=== PATIENT | male | born 1980 | race African-American/Black ===

== ENCOUNTER 2020-07-28 16:33 | Emergency (ER) | payer MEDICAID, SELFPAY ==
[2020-07-28 16:34] VITALS: BP 131/76; PULSE 86; RESP 16; TEMP 36.2; O2SAT 100; BMI 23.0
--- NOTE | 2020-07-28 16:47 | ED.DCSUM_ITS ---
- ER Visit Summary Date of Service: 07/28/20 Chief Complaint: Dental pain History of Present Illness: The patient is a 40 M with dental pain from a tooth fracture at the right mandible. Physical Examination: There is a fractured tooth to the right mandibular premolar. No abscess. No tongue elevation. No trismus. Airway intact. Skin is normal. Neck shows good range of motion. No meningismus. No lymphadenopathy. Test Results: None indicated Emergency Department Course and Treatment: Patient was treated with pain medicine and antibiotics. Referred to dental for follow-up. His prescription database report showed no controlled prescriptions. No history of addiction or abuse. Treatment Plan: Naproxen, [place], [place] K Disposition: Discharge Impression: Dental pain This note was generated with [employer] dictation software. It may contain incorrect words, spelling, and punctuation that were not noted in review of the chart prior to signing ED Disposition - Plan for ED Patient: Referrals: Eliazar Alberts Chi, MD [Primary Care Provider] -
--- NOTE | 2020-07-28 16:48 | ED.DEP ---
ED Disposition - Plan for ED Patient: Instructions: ED Tooth Pain Prescriptions: Naproxen [Naprosyn] 500 mg PO BID PRN #20 tab Prescription Printed Hydrocodone Bitart/Apap 5-325 [[place] 5MG-325MG] 1 tab PO Q6H PRN PRN 3 Days #10 tab PRN Reason: Pain Prescription Printed Penicillin V Potassium 500 mg PO 4X/DAY #40 tab Prescription Printed
[2020-07-28] MEDS: Penicillin Vk 250 MG Tablet 500 MG PO (17:13)
[2020-07-28] MEDS: HYDROcodone Bitartrate/Apap 5/325 Tablet PO (17:14)
== END 2020-07-28 17:32 | disposition home or self-care (01) ==
LOC: ED 16:59
PROVIDERS: Emergency Provider Emergency Medicine; PCP Family Medicine Geriatric Medicine
DX: K08.89 Other specified disorders of teeth and supporting structures (principal); F17.200 Nicotine dependence, unspecified, uncomplicated
CPT/HCPCS: 99283

== ENCOUNTER 2021-05-25 19:31 | Emergency (ER) | payer MEDICAID, SELFPAY ==
[2021-05-25 19:32] VITALS: BP 143/82; PULSE 96; RESP 18; TEMP 37.2; BMI 23.0
--- NOTE | 2021-05-25 19:40 | EDS_ITS ---
HPI History of Present Illness Chief Complaint: Lower Extremity Injury Informant: patient Narrative Narrative: Patient states he slipped getting off of his boat and trailer. He somehow twisted his right ankle. He states it has not swollen but it hurts mostly in the anterior medial area. No other injury. Pressing and moving makes it worse. A wrap that his put on made it better. [facility] Medical History (Updated 05/25/21 @ 20:[address] Adonis Joseph MD) Asthma Rheumatoid arthritis Home Medications naproxen 500 mg PO BID #20 tab 05/25/21 [Rx Last Taken Unknown] Allergy/AdvReac Type Severity Reaction Status Date / Time No Known Allergies Allergy Verified 07/28/20 16:34 Surgical History History of esophageal surgery Social History Smoking Status: Current every day smoker tobacco type: cigarettes ROS ROS ED Constitutional Constitutional ED: Denies fever(s) Gastrointestinal Gastrointestinal: Denies nausea or vomiting Musculoskeletal Musculoskeletal: Reports other Details: See history of present illness. ; Denies back pain or neck pain Integumentary Denies Abrasions or rash Neurologic Neurologic: Denies paresthesias or weakness Hematologic/Lymphatic Hematologic/Lymphatic: Denies easy bleeding or easy bruising EXAM Physical Exam Const Vital Signs: 05/25/21 19:32 05/25/21 20:36 Temperature 98.9 F Temperature Source Temporal Pulse Rate 96 Respiratory Rate 18 16 Blood Pressure 143/82 H Blood Pressure Mean 102 Positive well nourished and well developed General Appearance ED: well developed Resp normal respiratory effort Extremity normal to inspection Extremity Narrative: No visible deformity or swelling. There is some mild tenderness to the anterior lateral aspect of the medial malleolus. A little bit into the midfoot in that area. The ankle is stable to inversion eversion and drawer exam. Achilles is intact by palpation and Currie test. No tenderness with compression of calcaneus. Neuro oriented x3 Sensorium / Orientation: alert Psych mental status grossly normal Skin Lesions: no lesions Rashes: no rashes MDM MDM MDM Narrative Medical decision making narrative: X-rays looked at by me and read by radiology showed no sign of acute fracture. The patient had a stable ankle on exam. He will be given Naprosyn for pain. He requested crutches for support. I will also put him in an Aircast. He should be very gentle and avoid repeat injury for at least 2 months. If it still hurting in 2 weeks he should have it reevaluated and possibly clark-rayed. Radiography Diagnostic Testing: Radiology Impression Ankle X-Ray 05/25/21 19:46 IMPRESSION: Normal x-ray examination of the ankle. Electronically Signed: Anderson Alex MD at 20:05 EDT Tel , Service support , Discharge Plan Triage Chief Complaint: Lower Extremity Injury ED Provider: Adonis Joseph Dx/Rx/DC Orders Clinical Impression: Injury of ankle, right Instructions: ED Ankle Sprain (Adult) Prescriptions: New naproxen 500 MG tablet 500 mg PO BID Qty: 20 RF: 0 Primary Care Provider: Eliazar Alberts Chi Referrals: Eliazar Alberts Chi, MD [Primary Care Provider] - 10-14 Days if not better Disposition Disposition: Home, Self Care Discharge Date/Time: 05/25/21 20:51
--- NOTE | 2021-05-25 19:46 | RAD_ITS ---
STUDY: X-RAY - RIGHT ANKLE REASON FOR EXAM: Male, 40 years old. trauma, pain TECHNIQUE: 3 view(s) of the ankle. COMPARISON: None. FINDINGS: Normal visualized distal tibia and fibula. Normal medial and lateral malleoli. Normal tibiotalar articulation and ankle mortise. Normal visualized talus and calcaneus. The visualized subtalar, talonavicular, calcaneocuboid and tarsal articulations are normal. The soft tissue structures are unremarkable. RAD/Ankle min 3 Views IMPRESSION: Normal x-ray examination of the ankle. Electronically Signed: Anderson Alex MD at 20:05 EDT Tel , Service support ,
[2021-05-25 20:36] VITALS: RESP 16
[2021-05-25] MEDS: Naproxen 375 MG Tablet PO (20:42)
== END 2021-05-25 20:51 | disposition home or self-care (01) ==
PROVIDERS: Emergency Provider Emergency Medicine; PCP Family Medicine Geriatric Medicine
DX: S99.911A Unspecified injury of right ankle, initial encounter (principal); F17.210 Nicotine dependence, cigarettes, uncomplicated; X50.1XXA Overexertion from prolonged static or awkward postures, initial encounter
CPT/HCPCS: 73610; 99284

== ENCOUNTER → 2021-09-13 06:06 | Outpatient (CLI) | payer MEDICAID, SELFPAY ==
--- NOTE | 2021-09-13 08:08 | STRESSREP ---
Stress Test Report Date: 09-13-2021 Procedure: Pharmacologic stress nuclear imaging study Indications: Chest pain Consent: Per the patient Procedure: The patient underwent pharmacologic (Regadenoson 0.4mg ) evaluation with a peak heart rate of 110 beats per minute (61%predicted maximal heart rate) and a peak blood pressure of 118/72 mmHg. The baseline ECG demonstrated normal sinus rhythm. The peak pharmacologic ECG demonstrated no obvious ECG changes. There were no cardiac dysrhythmias pretest, during pharmacologic infusion, or recovery. The patient noted chest discomfort pretest, during pharmacologic infusion, and recovery without significant change. The examination was discontinued secondary to completion of protocol. Impression: 1. Pharmacologic (Regadenoson) evaluation 2. Peak pharmacologic ECG with no obvious ECG changes. 3. There were no cardiac dysrhythmias pretest, during pharmacologic infusion, or recovery. 4. Nuclear images pending Myocardial perfusion imaging study: Technique: The patient was injected with 11.8 millicuries of technetium 99m Cardiolite and subsequently rest SPECT Cardiolite nuclear imaging was obtained in the horizontal long, vertical long, and short axis views. The patient underwent pharmacologic (Regadenoson) evaluation with a peak heart rate of 110 beats per minute (61% percent predicted maximal heart rate) and a peak blood pressure of 118/72 mmHg. The patient was injected with 32.2 millicuries of technetium 99m Cardiolite and subsequently stress SPECT Cardiolite nuclear imaging was obtained in the horizontal long, vertical long, and short axis views. A gated Cardiolite study at peak stress was obtained. Interpretation: Rest and stress SPECT Cardiolite nuclear imaging status post realignment, normalization, and attenuation correction demonstrate relative uniform tracer uptake and myocardial perfusion appearing within normal limits. There is end systolic thickening and brightening. The gated Cardiolite study demonstrates myocardial thickening and inward wall motion. The reported LVEF is 67%. Impression: 1. Relative uniform tracer uptake and myocardial perfusion appearing within normal limits. 2. The gated Cardiolite study reports an LVEF of 67%. This note was generated with [employer] software. It may contain incorrect words, spelling, and punctuation that were not noted in checking the note before signing.
== END ==
PROVIDERS: PCP Family Medicine Geriatric Medicine; Referring Provider Family Medicine; Visit Provider Family Medicine
DX: R07.89 Other chest pain (principal)
CPT/HCPCS: 78452; 93017; A9500; A4216; J2785

== ENCOUNTER 2021-10-05 08:58 | Emergency (ER) | payer MEDICAID, SELFPAY ==
[2021-10-05 08:59] VITALS: BP 138/85; PULSE 103; RESP 16; TEMP 37.5; O2SAT 100; BMI 22.4
--- NOTE | 2021-10-05 09:12 | EKG12_ITS ---
Test Reason : Blood Pressure : / mmHG Vent. Rate : 090 BPM Atrial Rate : 090 BPM P-R Int : 164 ms QRS Dur : 098 ms QT Int : 336 ms P-R-T Axes : 077 -02 059 degrees QTc Int : 411 ms Normal sinus rhythm Normal ECG Confirmed by SAVANNAH LUBIN, FABIANA ([id number]), makeup editor JALEN ARND ([id number]) on 10/09/2021 11:36:28 AM Referred By: LAURA Confirmed By:FABIANA NUÑEZ MD
--- NOTE | 2021-10-05 09:13 | EX.ED.VIS.UR ---
HPI HPI - URI History of Present Illness Chief Complaint: Sore Throat Detail of Chief Complaint: Sore throat, cough, and chest pain Informant: patient Narrative Narrative: Patient presents with 2-day history of symptoms of cough and headache and body aches. Patient states he started having chest pain yesterday with a sharp pain in his left chest that comes and goes. Patient tells me had a stress test last week that was unremarkable. 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 He has a coworker that he works with directly and her is being tested for COVID. Patient denies recent travel or surgery. No history of PE or DVT. Prior similar symptoms: No ROS ROS ED Constitutional Constitutional ED: Reports systems reviewed and no addt'l complaints, except as documented; Denies body ache(s), change in weight or chills Eyes Eyes: Denies acute decrease in peripheral vision, change in vision, double vision or loss of vision ENT ENT ED: Reports none and sore throat; Denies ear pain, lip swelling, loss taste/smell, neck pain or otalgia Cardiovascular Cardiovascular: Reports none and chest pain; Denies abdominal pain, chest pain with activity, leg edema, lightheadedness, palpitations, rapid heart rate or syncope Respiratory/Chest Respiratory/Chest: Reports none and cough; Denies change in mental status, dry cough, dyspnea, hemoptysis, shortness of breath at rest or shortness of breath with exertion Gastrointestinal Gastrointestinal: Reports none; Denies abdominal pain, change in stool character, diarrhea, hematemesis, hematochezia, melena, rectal bleeding or vomiting Genitourinary Genitourinary ED: Reports none; Denies abdominal discomfort, anuria, dysuria, genital pain or polyuria Musculoskeletal Musculoskeletal: Reports none and myalgias; Denies arthralgias, back pain, difficulty walking, extremity pain or muscle weakness Integumentary Reports none; Denies abscess or rash Neurologic Neurologic: Reports none and headache(s); Denies abnormal gait, confusion, focal weakness, frequent falls, loss of vision, numbness, paresthesias, radicular pain, vertigo or weakness Psychiatric Psychiatric: Reports systems reviewed and no addt'l complaints, except as documented and none; Denies behavioral changes, confusion, difficulty concentrating, hallucinations, suicidal ideation, tactile hallucinations or visual hallucinations Endocrine Endocrinology: Denies none, cold intolerance, excessive sweating, fatigue or heat intolerance Hematologic/Lymphatic Hematologic/Lymphatic: Reports none; Denies anemia, easy bleeding or easy bruising Allergic/Immunologic Allergic/Immunologic ED: Denies as per HPI, none, lip swelling, mouth swelling, throat swelling, tongue swelling or hives PFSH PFSH Medical History (Updated 10/05/21 @ 11:[address] Ronnell Bowden, DO) Asthma Rheumatoid arthritis Home Medications naproxen 500 mg PO BID #20 tab 05/25/21 [Rx Last Taken Unknown] Allergy/AdvReac Type Severity Reaction Status Date / Time No Known Allergies Allergy Verified 10/05/21 08:59 Surgical History History of esophageal surgery Social History Smoking Status: Current every day smoker tobacco type: cigarettes EXAM Physical Exam Const Vital Signs: 10/05/21 08:59 10/05/21 09:18 10/05/21 09:54 Temperature 99.5 F H 99.5 F H Temperature Source Oral Temporal Pulse Rate 103 H 104 H 93 Respiratory Rate 16 12 22 H Respiratory Effort Normal Non-Labored Respiratory Pattern Normal Blood Pressure 138/85 H 93/56 L Blood Pressure Mean 102 68 Pulse Ox 100 99 98 Oxygen Delivery Method Room Air Room Air Room Air Positive well nourished and well developed General Appearance ED: well developed and NAD HEENT Reports TM's clear and moist mucous membranes normocephalic and atraumatic; Negative for trauma or tenderness Tympanic Membrane ED: Yes TM's clear Eyes PERRL and EOMs intact bilaterally General Eye ED: Negative for pale conjunctiva or scleral icterus Neck no lymphadenopathy, supple and no JVD General: Negative for tenderness Chest Wall inspection of chest normal and palpation of chest normal Chest: Negative for tenderness Resp normal respiratory effort and clear to auscultation bilaterally Effort and Inspection: Negative for respiratory distress or pain with movement Auscultation: Negative for rhonchi, wheezes or diminished lung sounds Cardio regular rate, regular rhythm, S1 normal heart sound, S2 normal heart sound and no murmurs Peripheral Pulses: pulses 2+ throughout GI normal to inspection, nondistended, normoactive bowel sounds, soft to palpation, non-tender, non-distended and no masses Back/Spine no CVA tenderness and no thoracic nor lumbar tenderness Extremity normal to inspection General Extremety ED: Negative for edema General Extremity: Negative for edema Neuro oriented x3, CN's II-XII intact bilaterally, no sensory deficits noted and gait normal Sensorium / Orientation: awake, alert, oriented to person, oriented to place and oriented to time Motor Exam: strength 5/5 throughout and strength abnormal Psych mental status grossly normal Skin no rashes or lesions noted and no wounds MDM MDM MDM Narrative Medical decision making narrative: IV line established on arrival. 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 Patient was noted to be COVID-positive and had an elevated D-dimer therefore CTA was obtained to rule out PE this was negative for PE. Given his history of asthma he will be referred for monoclonal antibody infusion which he is not sure if he would want to have but would like for me to make the referral as he does more research on it. Lab Data Attestation: I reviewed the patient's lab results. Labs: Laboratory Results - last 24 hr 10/05/21 10/05/21 10/05/21 09:20 09:20 09:20 WBC 7.3 RBC 4.57 L Hgb 13.7 Hct 41.1 MCV 89.9 MCH 30.0 MCHC 33.3 RDW Std Deviation 40.2 RDW Coeff of Yanely 12.2 Plt Count 230 MPV 8.9 Immature Gran % (Auto) 0.300 Neut % (Auto) 70.4 H Lymph % (Auto) 11.5 L [place] % (Auto) 16.4 H Eos % (Auto) 1.0 Baso % (Auto) 0.4 Absolute Neuts (auto) 5.1 Absolute Lymphs (auto) 0.84 Nucleated RBC % 0 D-Dimer Quant (PE/DVT) 0.61 H* Sodium 139 Potassium 3.9 Chloride 104 Carbon Dioxide 30.0 Anion Gap 5 BUN 9 Creatinine 0.94 Estim Creat Clear Calc 110.58 Est GFR (MDRD) Af Amer 115 Est GFR (MDRD) Non-Af 95 BUN/Creatinine Ratio 9.6 L Glucose 114 H Calcium 9.4 Troponin I High Sens 15 Radiography Diagnostic Testing: Clinical Impression(s) from Imaging Studies Chest X-Ray 10/05/21 09:30 IMPRESSION: Normal x-ray examination of the chest. Electronically Signed: Edward Sloan, at 9:56 EST Tel , Service support , Chest CTA 10/05/21 09:52 IMPRESSION: 1. No evidence of pulmonary embolism or aortic dissection. 2. No focal acute infiltrate or pleural effusions. Electronically Signed: Edward Sloan, at 10:45 EST Tel , Service support , 1 view chest x-ray obtained showed no acute disease process as interpreted by myself. Radiology in agreement.. EKG Initial EKG: Attestation: I personally reviewed and interpreted this EKG as follows: Comments: Sinus rhythm with a rate of 90 bpm with no acute ST segment changes Discharge Plan Triage Chief Complaint: Sore Throat ED Provider: Ronnell Bowden Dx/Rx/DC Orders Clinical Impression: COVID-19 Instructions: ED - COVID Monoclonal AB Infusion ..., Caring for Someone Who Has COVID-19 Prescriptions: No Action naproxen 500 MG tablet 500 mg PO BID Qty: 20 RF: 0 Primary Care Provider: Aaron Hauser Referrals: Aaron Hauser MD [Primary Care Provider] - 5-7 Days Disposition Disposition: Home, Self Care
[2021-10-05 09:18] VITALS: PULSE 104; RESP 12; O2SAT 99
[2021-10-05] MEDS: Ketorolac 30 MG/ML Syringe IV (09:22)
[2021-10-05 09:28] LABS: Absolute Lymphocyte Count 0.84 X10^3/uL (0.83-4.51); Absolute Neutrophil Count 5.1 X10^3/uL (2.0-7.7); Basophil# 0.03 X10^3/uL; Basophil% 0.4 % (0-1); Eosinophil# 0.07 X10^3/uL; Hematocrit 41.1 % (40-54); Hemoglobin 13.7 g/dL (13.0-16.5); Lymphocyte # 0.84 X10^3/ul (0.83-4.51); Lymphocyte % 11.5 % (19-41); Mean Corp Hgb Conc 33.3 g/dL (32-36); Mean Corpuscular Volume 89.9 fL (80-94); Mean Platelet Vol. 8.9 fl (6.2-12.0); Monocyte% 16.4 % (0-10); NRBC Flagged by Analyzer 0 % (0-5); Neutrophil # 5.14 X10^3/uL (2.7-7.7); Neutrophil % 70.4 % (47-70); Platelet Count 230 K/mm3 (150-450); RBC Distribution Width CV 12.2 % (11.6-14.6); RBC Distribution Width SD 40.2 fl (35.1-43.9); Red Blood Count 4.57 M/mm3 (4.6-6.2); White Blood Count 7.3 K/mm3 (4.4-11.0)
--- NOTE | 2021-10-05 09:30 | RAD_ITS ---
STUDY: X-RAY CHEST REASON FOR EXAM: Male, 41 years old. Chest pain TECHNIQUE: Single AP portable view of the chest. COMPARISON: None. FINDINGS: The lungs are clear and expanded. There is no demonstrated pleural abnormality. Normal size heart. Normal mediastinum and fabián. Normal visualized pulmonary arteries. Normal visualized aortic arch and descending thoracic aorta. Normal visualized thoracic spine. Normal visualized ribs, clavicles, and shoulders. There is no demonstrated abnormality of the visualized soft tissue structures of the upper abdomen. RAD/Chest 1 View (Portable) IMPRESSION: Normal x-ray examination of the chest. Electronically Signed: Edward Sloan, at 9:56 EST Tel , Service support ,
[2021-10-05 09:47] LABS: D-Dimer Quantitative (DVT/PE) 0.61 FEU/ug/m (0.27-0.49)
--- NOTE | 2021-10-05 09:52 | CT_ITS ---
STUDY: CTA CHEST REASON FOR EXAM: Male, 41 years old. Elevated d-dimer RADIATION DOSAGE (If Supplied By Facility): CTDIvol = ( 10.49 ) mGy, DLP = ( 391.19 ) mGycm TECHNIQUE: The examination was performed with the intravenous administration of IV 75mL Isovue-370. Post-processing of the angiographic images was performed, with multiplanar reformation and 3D reconstruction. Individualized dose optimization techniques were used for this CT. COMPARISON: None. FINDINGS: Normal enhancement of the main pulmonary artery and right and left pulmonary arteries. Normal enhancement of the bilateral peripheral pulmonary arteries. There is no demonstrated pulmonary embolism. Normal thoracic aorta and visualized great vessels. There is no demonstrated aortic dissection. Normal heart and pericardium. Normal mediastinum. Normal hilar regions. Normal visualized trachea and bronchi. There are no pulmonary infiltrates. Focal scarring in the left midlung adjacent to old fracture of the left sixth rib. There are no pleural effusions. Normal chest wall structures. No demonstrated acute osseous changes. Normal visualized upper abdomen. CT/CTA Chest W/WO Contrast IMPRESSION: 1. No evidence of pulmonary embolism or aortic dissection. 2. No focal acute infiltrate or pleural effusions. Electronically Signed: Edward Sloan, at 10:45 EST Tel , Service support ,
[2021-10-05 09:54] VITALS: BP 93/56; PULSE 93; RESP 22; TEMP 37.5; O2SAT 98
[2021-10-05 09:57] LABS: Anion Gap 5 (5-15); BUN 9 mg/dL (7-18); BUN/Creat Ratio 9.6 RATIO (10-20); Calcium,Total 9.4 mg/dL (8.5-10.1); Chloride 104 mmol/L (98-107); Creatinine, Serum 0.94 mg/dL (0.70-1.30); EST Glomerular Filtration Rate 95 mL/min (>60); Est Glom Filt Rate - Afr Amer 115 mL/min (>60); Estimated Creatinine Clearance 110.58 ml/min; Glucose 114 mg/dL (74-106); Potassium 3.9 mmol/L (3.5-5.1); Sodium Level 139 mmol/L (136-145); Troponin-I HS 15 pg/mL (3.0-78.0)
[2021-10-05 11:24] VITALS: BP 124/66; PULSE 71; RESP 15; O2SAT 97
== END 2021-10-05 11:25 | disposition home or self-care (01) ==
PROVIDERS: Emergency Provider Emergency Medicine; PCP Family Medicine; Visit Provider Emergency Medicine
DX: U07.1 COVID-19 (principal); M06.9 Rheumatoid arthritis, unspecified; J45.909 Unspecified asthma, uncomplicated; R79.1 Abnormal coagulation profile; F17.210 Nicotine dependence, cigarettes, uncomplicated
CPT/HCPCS: 71045; 71275; 80048; 84484; 85025; 85379; 87426; 93005; 96374; 99285; Q9967; A4216

== ENCOUNTER → 2025-01-10 | Outpatient (CLI) | payer OTHER, SELFPAY ==
--- NOTE | 2025-01-10 12:50 | RAD_ITS ---
PROCEDURE: WRIST MIN 3 VIEWS; FOREARM 2 VIEWS 01/10/2025 REASON FOR EXAM: WRIST INJURY; FOREARM INJURY TECHNIQUE: 3 views of the right wrist; 2 views of the right hand COMPARISON: None FINDINGS: Bones: No visible fracture. No suspicious bone lesion. The radius and ulna appear intact. Joints: Normal alignment. Joint spaces preserved. No arthropathic features. Soft tissues: No gas or unexpected radiopaque foreign body. RAD/Wrist min 3 Views IMPRESSION: No acute abnormal finding in the right forearm or wrist. Reading [facility]
--- NOTE | 2025-01-10 12:50 | RAD_ITS ---
PROCEDURE: WRIST MIN 3 VIEWS; FOREARM 2 VIEWS 01/10/2025 REASON FOR EXAM: WRIST INJURY; FOREARM INJURY TECHNIQUE: 3 views of the right wrist; 2 views of the right hand COMPARISON: None FINDINGS: Bones: No visible fracture. No suspicious bone lesion. The radius and ulna appear intact. Joints: Normal alignment. Joint spaces preserved. No arthropathic features. Soft tissues: No gas or unexpected radiopaque foreign body. RAD/Forearm 2 Views IMPRESSION: No acute abnormal finding in the right forearm or wrist. Reading [facility]
== END | disposition home or self-care (01) ==
LOC: MTRAD 12:50
PROVIDERS: PCP Family Medicine; Referring Provider Physician Assistant; Visit Provider Physician Assistant
DX: S69.91XA Unspecified injury of right wrist, hand and finger(s), initial encounter (principal); S59.911A Unspecified injury of right forearm, initial encounter
CPT/HCPCS: 73090; 73110